=== PATIENT | female | born 1950 | race Caucasian/White ===

== ENCOUNTER 2022-01-14 12:21 | Outpatient (CLI) | payer MEDICARE, BC | END 2022-01-14 12:22 | disposition home or self-care (01) | LOC: SCSRAD 12:21 | PROVIDERS: ATTEND Family Medicine | DX: R05.2 Subacute cough (principal); R50.9 Fever, unspecified; R91.8 Other nonspecific abnormal finding of lung field | CPT/HCPCS: 36415; 71046; 80053; 84443; 85025; 85652; 86140 ==

== ENCOUNTER 2022-02-11 14:44 | Outpatient (CLI) | payer MEDICARE, BC | END 2022-02-11 14:45 | disposition home or self-care (01) | LOC: SCSRAD 14:44 | PROVIDERS: ATTEND Family Medicine | DX: J18.9 Pneumonia, unspecified organism (principal) | CPT/HCPCS: 71046 ==

== ENCOUNTER 2022-10-22 09:57 | Outpatient (CLI) | payer MEDICARE, BC | END 2022-10-22 09:58 | disposition home or self-care (01) | LOC: RAD 09:57 | PROVIDERS: ATTEND Internal Medicine | DX: I69.191 Dysphagia following nontraumatic intracerebral hemorrhage (principal); R13.12 Dysphagia, oropharyngeal phase; G35 Multiple sclerosis | CPT/HCPCS: 74230 ==